=== PATIENT | female | born 1985 | race African-American/Black ===

== ENCOUNTER 2023-07-05 07:22 | Emergency (ER) | payer SELFPAY ==
[2023-07-05] MEDS ORDERED: Ketorolac Tromethamine 30 MG (1 mL) VIAL ONE (07:59)
== END 2023-07-05 08:03 | disposition home or self-care (01) ==
LOC: CSHERS 07:22
DX: K08.89 Other specified disorders of teeth and supporting structures (principal); R51.9 Headache, unspecified
CPT/HCPCS: 96372; 99283; J1885

== ENCOUNTER 2023-11-16 11:58 | Emergency (ER) | payer SELFPAY | END 2023-11-16 12:21 | disposition home or self-care (01) | LOC: CSHERS 11:58 | DX: K04.7 Periapical abscess without sinus (principal) | CPT/HCPCS: 99282 ==

== ENCOUNTER 2024-03-16 14:00 | Emergency (ER) | payer SELFPAY ==
[2024-03-16] MEDS ORDERED: HYDROcodone/Acetaminophen 5/325 mg Tablet ONE (15:45)
== END 2024-03-16 15:53 | disposition home or self-care (01) ==
LOC: CSHERS 14:00
DX: K02.9 Dental caries, unspecified (principal); K04.7 Periapical abscess without sinus
CPT/HCPCS: 64400; 99282

== ENCOUNTER 2024-03-17 10:56 | Emergency (ER) | payer SELFPAY | END 2024-03-17 12:27 | disposition left against medical advice (07) | LOC: CSHERS 10:56 | DX: Z53.21 Procedure and treatment not carried out due to patient leaving prior to being seen by health care provider (principal) ==

== ENCOUNTER 2024-03-19 13:04 | Emergency (ER) | payer SELFPAY ==
[2024-03-19] MEDS ORDERED: Ketorolac Tromethamine 30 MG (1 mL) VIAL ONE (14:18)
[2024-03-19] MEDS ORDERED: HYDROcodone/Acetaminophen 5/325 mg Tablet ONE (14:18)
== END 2024-03-19 17:45 | disposition left against medical advice (07) ==
LOC: CSHERS 13:04
DX: K08.89 Other specified disorders of teeth and supporting structures (principal); Z53.21 Procedure and treatment not carried out due to patient leaving prior to being seen by health care provider; Z55.0 Illiteracy and low-level literacy
CPT/HCPCS: 96372; 99282; J1885

== ENCOUNTER 2024-05-09 00:24 | Emergency (ER) | payer SELFPAY ==
[2024-05-09] MEDS ORDERED: Dexamethasone 10 MG/ML VIAL ONE (01:56)
[2024-05-09] MEDS ORDERED: Acetaminophen 325 MG TAB ONE (01:57)
== END 2024-05-09 02:52 | disposition home or self-care (01) ==
LOC: CSHERS 00:24
DX: J06.9 Acute upper respiratory infection, unspecified (principal); R05.1 Acute cough
CPT/HCPCS: 71046; J1100

== ENCOUNTER 2025-02-18 03:12 | Emergency (ER) | payer SELFPAY ==
[2025-02-18 03:46] LABS: Glucose, Urine (Dipstick) Normal (Negative); Leukocyte Negative (Negative); Protein, Urine (Dipstick) Negative (Neg-Trace); Specific Gravity, Urine 1.005 (1.005-1.030)
[2025-02-18 03:48] LABS: Pregnancy Test - Urine (BHCG) Negative (Negative); Pregu Control Background? CLEAR/WHITE (CLR/WHITE); Pregu Control Bar Appear? YES (CONTROL BAR)
[2025-02-18 03:54] LABS: Cocaine Metabolite Screen Negative (Negative); THC/Cannabinoid Screen Negative (Negative); Tricyclic Screen Negative (Negative)
[2025-02-18 03:57] LABS: Bacteria/HPF None Seen HPF (None Seen); CAUTI Indications for Culture Alt mental st,lethar; WBC/HPF None Seen HPF (0-3)
[2025-02-18 03:58] LABS: Urine Culture Reflex No No
== END 2025-02-18 04:33 | disposition home or self-care (01) ==
LOC: CSHERS 03:12
DX: F10.129 Alcohol abuse with intoxication, unspecified (principal); R41.82 Altered mental status, unspecified
CPT/HCPCS: 80306; 81001; 81025; 99285